=== PATIENT | female | born 1965 | race Caucasian/White ===

== ENCOUNTER → 2019-04-24 | Day surgery (SDC) | payer OTHER ==
[~2019-04-24] MED LIST: IV RINGERS,LACTATED 1000ML 1,000 ML IV SCH; LIDOCAINE 2% PF 5 ML VIAL. ONE; PROPOFOL 20 ML IV ONE
[2019-04-24 13:03] VITALS: BP 157/92
--- NOTE | 2019-04-26 17:07 | PATHOLOGY ---
[facility] Accession Number: [id number] . 01 Material submitted: . colon - SIGMOID COLON POLYPS BIOPSY. Modifiers: sigmoid . 01 Clinical history: . History of polyps . 02 Diagnosis: Colon biopsies, sigmoid colon polyps: - Hyperplastic polyps (2). - Prominent mucosal folds (2). (JPM:[facility] 04/26/2019) [facility] 04/26/2019 0930 Local . 02 Comment: Sections of the sigmoid colon biopsy reveal two hyperplastic polyps and two segments of colonic mucosa consistent with prominent mucosal folds. The latter show edema of lamina propria and focally contain a few foamy histiocytes. There are no adenomatous changes or evidence of malignancy. . (JPM:[facility] 04/26/2019) . 02 Electronically signed: . Gamal Osorio MD, Pathologist NPI- [id number] . 01 Gross description: . The specimen is received in formalin, labeled "Ela Cruz, sigmoid colon polyps biopsy". Received are four segments of pale sen soft tissue ranging in size from 0.3 to 0.4 cm in maximum dimensions. The specimen is submitted entirely in cassette A1. ([facility]; 04/25/2019) QA/QAC 04/25/2019 1136 Local . 02 Pathologist provided ICD-10: K63.5 . 02 CPT . 541420 Specimen Comment: A courtesy copy of this report has been sent to [phone], [phone]- Specimen Comment: [id number] Specimen Comment: Report sent to / DR MARTIN Performed at: 01 [facility] [address], [place], [place] [id number] MD Robinson Hensley MD Phone: [phone] Performed at: 02 [facility] [address] [place], [place] [id number] MD Gamal Osorio MD Phone: [phone]
== END ==
LOC: ENDOS 10:44
PROVIDERS: ATTEND Internal Medicine Gastroenterology
DX: Z12.11 Encounter for screening for malignant neoplasm of colon (principal); K63.5 Polyp of colon; Z86.010 Personal history of colon polyps
CPT/HCPCS: 45380; J2001; J2704

== ENCOUNTER → 2019-05-08 | Outpatient (CLI) | payer OTHER ==
[2019-04-24 13:03] VITALS: BP 157/92
[2019-05-08 16:01] LABS: FREE T4 0.42 ng/dL (0.76-1.46)
[2019-05-08 16:24] LABS: THYROID STIM HORMONE (TSH) 163.52 uIU/mL (0.358-3.74)
== END | disposition home or self-care (01) ==
LOC: LAB 15:12
PROVIDERS: ATTEND Nurse Practitioner Gerontology
DX: E03.9 Hypothyroidism, unspecified (principal)
CPT/HCPCS: 36415; 84439; 84443

== ENCOUNTER → 2021-02-11 | Outpatient (CLI) | payer OTHER ==
[2019-04-24 13:03] VITALS: BP 157/92
[2021-02-11 11:19] LABS: FREE T4 1.2 ng/dL (0.76-1.46); THYROID STIM HORMONE (TSH) 2.336 uIU/mL (0.358-3.74)
== END ==
LOC: LAB 10:20
PROVIDERS: ATTEND Family Medicine
DX: E03.9 Hypothyroidism, unspecified (principal)
CPT/HCPCS: 36415; 84439; 84443